=== PATIENT | male | born 1980 | race Caucasian/White ===

== ENCOUNTER 2019-07-11 19:41 | Emergency (ER) | payer OTHER, SELFPAY ==
--- NOTE | ~2019-07-11 | XR_ITS ---
EXAMINATION: XR chest 2V EXAM DATE: 07/11/2019 20:26 INDICATION: Fever, right foot pain. Bilateral lower extremity swelling. Hypertension. TECHNIQUE: Frontal and lateral projections of the chest obtained and reviewed. There is no prior jason dy for comparison. FINDINGS: The lungs are clear. There are no pleural effusions. The cardiomediastinal silhouette is within normal limits. There is no pneumothorax suspected. The bones and soft tissues are unremarkab le. IMPRESSION: Normal chest x-ray exam. Reviewed, dictated and finalized at location A. [facility] IMPRESSION: Normal chest x-ray exam.
[2019-07-11 19:48] VITALS: BP 192/101; PULSE 113; RESP 16; TEMP 37.9; O2SAT 100
[2019-07-11 20:55] LABS: Basophils Percent Auto 0.3 % (0.2-1.2); Eosinophils Absolute Auto 0.1 K/mm3 (0-0.3); Eosinophils Percent Auto 0.5 % (0-4.4); Hematocrit 35.8 % (42.0-52.0); Hemoglobin 12.6 g/dL (14.0-18.0); Immature Granulocyte Absolute 0.03 K/mm3 (0.00-0.031); Immature Granulocyte Percent A 0.2 % (0-0.5); Lymphocytes Absolute Auto 1.92 K/mm3 (0.9-3.2); Lymphocytes Percent Auto 15.5 % (18.3-44.2); Mean Corpuscular HGB Conc 35.2 g/dl (32-36); Mean Corpuscular Hemoglobin 33.3 pg (26-34); Mean Corpuscular Volume 94.7 fl (80-100); Mean Platelet Volume 10.4 fl (7.4-10.4); Monocytes Absolute Auto 0.9 K/mm3 (0.1-0.6); Monocytes Percent Auto 7.2 % (2.6-8.5); Neutrophils Absolute Auto 9.4 K/mm3 (1.3-6.7); Neutrophils Percent Auto 76.3 % (45.5-73.1); Platelet Count Result 249 k/mm3 (150-375); Red Blood Count 3.78 M/mm3 (4.6-6.20); Red Cell Distribution Width 13.2 % (11.5-14.5); White Blood Count 12.4 K/mm3 (4.5-10.0)
[2019-07-11 21:03] LABS: Partial Thromboplastin Time 29.7 SECONDS (22.3-36.8); Prothrombin Time 13.1 Seconds (11.1-14.7)
--- NOTE | 2019-07-11 21:05 | ED.LOWEXIN ---
HPI - Extremity Injury (Lower) General Chief Complaint: Extremity Injury, Lower Stated Complaint: R foot pain Time Seen by Provider: 07/11/19 20:59 Source: patient and RN notes reviewed Mode of arrival: other Limitations: no limitations History of Present Illness HPI Narrative: Pt is a 38 y/o male who presents to the ED with c/o sharp right foot pain that began Monday (07/08/19). Pt notes that his right foot feels tight and has some swelling. Pt states that today he began to have left foot pain. Pt denies any recent injuries, recent wounds, and having Athlete's foot. Pt denies numbess and tingling. complaint: other (foot pain) Onset (ago): day(s) (3) Associated symptoms: swelling Other symptoms: none Related Data Allergies Allergy/AdvReac Type Severity Reaction Status Date / Time cefaclor [From Ceclor] Allergy Unknown Verified 07/11/19 20:42 Review of Systems Review of Systems: All systems reviewed & are unremarkable except as noted in HPI and below Musculoskeletal: Musculoskeletal: Reports other (bilateral foot pain) Neurologic: Denies numbness and Denies tingling PMFSH Past Medical History Medical History (Updated 07/11/19 @ 22:36 by Ramon Smith MD) HTN (hypertension) Surgical History Surgical History (Updated 07/11/19 @ 21:34 by Yesenia Ledbetter) Surgical history unknown Social History Social History (Updated 07/11/19 @ 21:34 by Yesenia Ledbetter) Smoking status: Unknown if ever smoked Gender identity (if verbalized by the patient): Male Exam Const: General: healthy appearing, no acute distress and alert Orientation/consciousness: patient oriented x3 HENMT: Head: normal to inspection Resp: Effort & Inspection: normal respiratory effort Auscultation: clear to auscultation bilaterally Cardio: Rate: regular rate Rhythm: regular rhythm GI: GI Palp: Yes Soft to palpation and No Tenderness to palpation present (GI) Skin: Other: Swelling, erythema, induration, tenderness, and warmth over the dorsum of the right foot. Neuro: General: patient oriented x3 and moves all extremities Speech: normal speech Extrem: Other: See skin. Otherwise normal exam Course Vital Signs Vital signs: Vital Signs Temperature 37.9 C H 07/11/19 19:48 Pulse Rate 113 H 07/11/19 19:48 Respiratory Rate 16 07/11/19 19:48 Blood Pressure 192/101 H 07/11/19 19:48 Pulse Oximetry 100 07/11/19 19:48 Temperature 37.9 C H 07/11/19 19:48 Pulse Rate 113 H 07/11/19 19:48 Respiratory Rate 16 07/11/19 19:48 Blood Pressure 192/101 H 07/11/19 19:48 Pulse Oximetry 100 07/11/19 19:48 MDM - Extremity Injury (Lower) MDM Narrative Medical decision making narrative: He has cellulitis of the right foot. He is otherwise healthy and should be a good candidate for a trial of PO antibiotics. He also has a low potassium. I will provide short term potassium replacement. Differential Diagnosis Differential diagnosis: Likely other (Cellulitis, septic joint) Medical Records Attestation: I reviewed the patient's medical records. Lab Data Attestation: I reviewed the patient's lab results. Result diagrams: 07/11/19 20:00 07/11/19 20:00 Labs: Lab Results 07/11/19 07/11/19 07/11/19 Range/Units 20:00 20:00 20:00 WBC 12.4 H (4.5-10.0) K/mm3 RBC 3.78 L (4.6-6.20) M/mm3 Hgb 12.6 L (14.0-18.0) g/dL Hct 35.8 L (42.0-52.0) % MCV 94.7 (80-100) fl MCH 33.3 (26-34) pg MCHC 35.2 (32-36) g/dl RDW 13.2 (11.5-14.5) % Plt Count 249 (150-375) k/mm3 MPV 10.4 (7.4-10.4) fl Immature Gran % (Auto) 0.2 (0-0.5) % Neut % (Auto) 76.3 H (45.5-73.1) % Lymph % (Auto) 15.5 L (18.3-44.2) % [place] % (Auto) 7.2 (2.6-8.5) % Eos % (Auto) 0.5 (0-4.4) % Baso % (Auto) 0.3 (0.2-1.2) % Lymph # (Auto) 1.92 (0.9-3.2) K/mm3 [place] # (Auto) 0.9 H (0.1-0.6) K/mm3 Eos # (Auto) 0.1 (0-0.3) K/mm3 Baso # (Auto) 0.0 (0
[2019-07-11 21:09] LABS: Lactic Acid Reflex 1.6 mmol/L (0.7-2.1)
[2019-07-11 21:30] LABS: Alanine Aminotransferase 28 U/L (4-50); Albumin Level 4.3 g/dL (3.5-5.1); Alkaline Phosphatase 92 U/L (38-126); Aspartate Amino Transferase 40 U/L (17-59); Bilirubin,Total 1.4 mg/dL (0.2-1.3); Blood Urea Nitrogen 7 mg/dL (9-20); Calcium 7.8 mg/dL (8.4-10.2); Carbon Dioxide 27 mmol/L (22-30); Chloride 95 mmol/L (98-107); Estimated CRCL calculation 109 ml/min; Estimated Glomerular Filt Rate > 60; Glucose 130 mg/dL (75-110); Potassium 2.6 mmol/L (3.4-5.0); Sodium 137 mmol/L (137-145)
[2019-07-11 21:34] LABS: CRP 12.4 mg/dL (<1.0)
[2019-07-11] MEDS: POTASSIUM CHLORIDE 20 MEQ PACKET (FOR LIQUID) 40 MEQ PO (22:19)
[2019-07-11] MEDS: DOXYCYCLINE HYCLATE 100 MG TABLET PO (22:19)
== END 2019-07-11 23:09 | disposition home or self-care (01) ==
PROVIDERS: Emergency Provider Emergency Medicine
DX: L03.115 Cellulitis of right lower limb (principal); I10 Essential (primary) hypertension; E87.6 Hypokalemia
CPT/HCPCS: 36415; 71046; 80053; 83605; 85025; 85610; 85730; 86140; 87040; 87804; 99283; A9270